=== PATIENT | female | born 1995 ===

== ENCOUNTER 2022-08-13 10:56 | Outpatient (REF) | payer OTHER, SELFPAY ==
[2022-08-13 14:54] LABS: CT PCR NOT DETECTED (Not Detect.); NG PCR NOT DETECTED (Not Detect.)
== END 2022-08-13 10:57 | disposition home or self-care (01) ==
LOC: HO.LNP 10:56
PROVIDERS: Visit Provider Advanced Practice Midwife
DX: Z01.419 Encounter for gynecological examination (general) (routine) without abnormal findings (principal); Z20.2 Contact with and (suspected) exposure to infections with a predominantly sexual mode of transmission; R68.82 Decreased libido
CPT/HCPCS: 0353U; 88142